=== PATIENT | female | born 1955 | race Caucasian/White ===

== ENCOUNTER → 2020-09-11 | Outpatient (CLI) | payer MEDICARE | LOC: US 09:22 | DX: K74.5 Biliary cirrhosis, unspecified (principal); E03.9 Hypothyroidism, unspecified; Z90.49 Acquired absence of other specified parts of digestive tract | CPT/HCPCS: 76705 ==

== ENCOUNTER → 2021-03-12 | Outpatient (CLI) | payer MEDICARE | LOC: US 13:18 | DX: E03.9 Hypothyroidism, unspecified (principal); M15.0 Primary generalized (osteo)arthritis; Z79.899 Other long term (current) drug therapy | CPT/HCPCS: 76536 ==